=== PATIENT | male | born 1945 | race Caucasian/White ===

== ENCOUNTER 2019-01-18 10:31 | Day surgery (SDC) | payer MEDICARE, BC ==
[~2019-01-18 10:31] MED LIST: Lactated Ringers 1,000 ML IV SCH
[2019-01-18] MEDS ORDERED: Midazolam 1 MG/ML 2 ML SDV ONE (12:07)
[2019-01-18] MEDS ORDERED: fentaNYL 100 MCG/2 ML SDV ONE (12:07)
[2019-01-18] MEDS ORDERED: Propofol 200 MG/20 ML SDV ONE (12:08)
--- NOTE | 2019-01-19 07:50 | OR ---
PREOPERATIVE DIAGNOSIS: Screening colonoscopy. POSTOPERATIVE DIAGNOSIS: Screening colonoscopy. PROCEDURE PERFORMED: Screening colonoscopy. INDICATION: The patient is a 73-year-old male whose last colonoscopy was about 10 years ago, presents for repeat colonoscopy at this time. PROCEDURE IN DETAIL: This was done in the endoscopy suite. Sedation was given per Anesthesia. He was placed in left lateral position. First, a rectal exam was done, was normal. Scope was introduced into the rectum, slowly advanced to the rectum, sigmoid, descending, transverse, and ascending colon until the cecum was reached. Upon reaching the cecum, the scope was slowly withdrawn looking at all the mucosal surface on the way out. No mucosal abnormalities, lesions, or polyps were noted. FINAL DIAGNOSIS: Normal colonoscopy. BKD: 01/18/2019 12:31:38 MODL: 01/18/2019 16:38:48 /[id number]
== END 2019-01-18 13:45 | disposition home or self-care (01) ==
LOC: VM.SDS 10:31
PROVIDERS: ATTEND Surgery
DX: Z12.11 Encounter for screening for malignant neoplasm of colon (principal); I10 Essential (primary) hypertension; E11.9 Type 2 diabetes mellitus without complications; E78.5 Hyperlipidemia, unspecified; Z79.84 Long term (current) use of oral hypoglycemic drugs; Z79.899 Other long term (current) drug therapy; Z79.82 Long term (current) use of aspirin
CPT/HCPCS: 00811; 82962; G0121; J2250; J2704; J3010; J7120